=== PATIENT | male | born 1980 | race Caucasian/White ===

== ENCOUNTER 2019-02-24 19:25 | Emergency (ER) | payer MEDICAID ==
[~2019-02-24] VITALS: Ht 180.3 cm; Wt 62.1 kg
[2019-02-24 22:06] VITALS: BP 132/78
== END 2019-02-24 22:08 | disposition home or self-care (01) ==
LOC: ED 21:57
DX: F25.9 Schizoaffective disorder, unspecified (principal); F17.200 Nicotine dependence, unspecified, uncomplicated
CPT/HCPCS: 96372; 99284; J3486